=== PATIENT | male | born 1960 | race Caucasian/White ===

== ENCOUNTER 2018-10-13 06:59 | Day surgery (SDC) | payer OTHER ==
[2018-10-13] MEDS ORDERED: PROPOFOL 60 ML (09:35)
[2018-10-13] MEDS ORDERED: LIDOCAINE 2% (SDV) 5 ML INJ (09:35)
[2018-10-13] MEDS ORDERED: ONDANSETRON 4 MG INJ IV (10:00)
== END 2018-10-13 11:23 | disposition home or self-care (01) ==
LOC: GIL 06:59
DX: Z12.11 Encounter for screening for malignant neoplasm of colon (principal); K64.8 Other hemorrhoids; D12.5 Benign neoplasm of sigmoid colon; K29.60 Other gastritis without bleeding
CPT/HCPCS: 43239; 88305; 88313